=== PATIENT | male | born 1935 | race Caucasian/White ===

== ENCOUNTER 2017-04-03 01:17 | Day surgery (SDC) | payer MEDICARE ==
[~2017-04-03 01:17] MED LIST: ALLO300 PO; ASPI325EC PO; ASPI81CH PO; Amlodipine Besyl5 MG PO; BACPOLTO30 TOP; LISHYD2025 PO; METO25 PO
== END 2017-04-03 14:35 | disposition home or self-care (01) ==
LOC: ATC 01:17
DX: N40.1 Benign prostatic hyperplasia with lower urinary tract symptoms (principal); I12.9 Hypertensive chronic kidney disease with stage 1 through stage 4 chronic kidney disease, or unspecified chronic kidney disease; N18.9 Chronic kidney disease, unspecified; I48.0 Paroxysmal atrial fibrillation; R33.9 Retention of urine, unspecified
CPT/HCPCS: 51702

== ENCOUNTER 2017-04-23 00:43 | Day surgery (SDC) | payer MEDICARE | END 2017-04-23 14:37 | disposition home or self-care (01) | LOC: ATC 00:43 | DX: N40.1 Benign prostatic hyperplasia with lower urinary tract symptoms (principal); R33.9 Retention of urine, unspecified; I48.91 Unspecified atrial fibrillation; I12.9 Hypertensive chronic kidney disease with stage 1 through stage 4 chronic kidney disease, or unspecified chronic kidney disease; N18.9 Chronic kidney disease, unspecified; R73.9 Hyperglycemia, unspecified | CPT/HCPCS: 99211 ==

== ENCOUNTER 2018-02-09 17:52 | Inpatient (IN) | payer MEDICARE ==
[~2018-02-09] VITALS: Ht 185.4 cm; Wt 85.6 kg
[2018-02-09 19:22] LABS: BASOPHILS ABSOLUTE AUTO 0.07 K/mm3 (0.00-0.23); BASOPHILS PERCENT AUTO 1 % (0-2); EOSINOPHILS ABSOLUTE AUTO 0.25 K/mm3 (0.00-0.68); EOSINOPHILS PERCENT AUTO 2 % (0-6); Hematocrit 48.7 % (37.0-53.0); Hemoglobin 16.2 g/dL (13.5-17.5); IMMATURE GRAN ABSOLUTE AUTO 0.09 K/mm3 (0.00-0.10); IMMATURE GRAN PERCENT AUTO 1 % (0-1); LYMPHOCYTES ABSOLUTE AUTO 1.44 K/mm3 (0.84-5.20); LYMPHOCYTES PERCENT AUTO 11 % (21-46); MONOCYTES ABSOLUTE AUTO 0.81 K/mm3 (0.16-1.47); MONOCYTES PERCENT AUTO 6 % (4-13); Mean Corpuscular HGB 32.3 pg (26.0-34.0); Mean Corpuscular HGB Conc 33.3 g/dL (31.5-36.5); Mean Corpuscular Volume 97 fL (80-100); Mean Platelet Volume 12.2 fL (9.1-12.4); NEUTROPHILS PERCENT AUTO 80 % (41-73); Platelet Count 158 K/mm3 (150-400); RDW Coefficient Variation 13.9 % (11.7-14.2); RDW Standard Deviation 50.4 fL (35.1-46.3); Red Blood Cell Count 5.02 M/mm3 (4.30-5.90); White Blood Cell Count 13.06 K/mm3 (4.00-11.30)
[2018-02-09 19:29] LABS: Albumin, Blood 3.7 g/dL (3.4-5.0); Albumin/Globulin Ratio 0.9 (0.8-1.8); Bun/Creatinine Ratio 27.2 (12.0-20.0); Calcium, Blood 9.8 mg/dL (8.5-10.1); Creatinine, Blood 1.36 mg/dL (0.60-1.20); Globulin, Blood 4.1 g/dL (2.2-4.0); Potassium, Blood 3.4 mmol/L (3.5-5.5); Total Protein, Blood 7.8 g/dL (6.4-8.2)
[2018-02-09 21:38] LABS: Source, Urine Catheter
[2018-02-09 21:41] LABS: Bilirubin, Urine Neg (Neg); Blood, Urine 3+ (Neg); Glucose Qualitative, Urine Neg (Neg); Ketones, Urine Neg (Neg); Leukocyte Esterase, Urine 1+ (Neg); Nitrite, Urine Neg (Neg); Protein, Urine 4+ (Neg); Urobilinogen, Urine NORM (Normal); pH, Urine 6.5 (5.0-8.0)
[2018-02-09 21:44] LABS: Color, Urine Yellow (P-Yellow)
[2018-02-09 21:47] LABS: Appearance, Urine Hazy (Clear); Bacteria Many /hpf; Red Blood Cells, Urine 0-2 /hpf (0-2); Squamous Epithelial Cells Not Seen /hpf (Few); White Blood Cells, Urine 25-50 /hpf (0-5)
[2018-02-09] MEDS ORDERED: ALLO300 PO (23:11)
[2018-02-09] MEDS ORDERED: FURO20 PO (23:12)
[2018-02-09] MEDS ORDERED: LISI20 PO (23:12)
[2018-02-10 01:31] LABS: Source, Urine Clean Catch
[2018-02-10 01:34] LABS: Bilirubin, Urine Neg (Neg); Blood, Urine 3+ (Neg); Glucose Qualitative, Urine Neg (Neg); Ketones, Urine Neg (Neg); Leukocyte Esterase, Urine 1+ (Neg); Nitrite, Urine Neg (Neg); Protein, Urine 4+ (Neg); Urobilinogen, Urine NORM (Normal)
[2018-02-10 01:37] LABS: Appearance, Urine Hazy (Clear); Color, Urine Yellow (P-Yellow)
[2018-02-10 01:53] LABS: Bacteria Many /hpf; Red Blood Cells, Urine Rare /hpf (0-2); Squamous Epithelial Cells Not Seen /hpf (Few)
[2018-02-10 03:09] LABS: Hematocrit 48.7 % (37.0-53.0); Hemoglobin 16.1 g/dL (13.5-17.5); Mean Corpuscular HGB 32.3 pg (26.0-34.0); Mean Corpuscular HGB Conc 33.1 g/dL (31.5-36.5); Mean Corpuscular Volume 98 fL (80-100); Platelet Count 141 K/mm3 (150-400); RDW Coefficient Variation 14.1 % (11.7-14.2); RDW Standard Deviation 50.9 fL (35.1-46.3); Red Blood Cell Count 4.98 M/mm3 (4.30-5.90); White Blood Cell Count 12.63 K/mm3 (4.00-11.30)
[2018-02-10 03:22] LABS: Mean Platelet Volume 13.6 fL (9.1-12.4)
[2018-02-10 03:25] LABS: Alanine Aminotransfer (ALT/SGP 28 U/L (12-78); Albumin, Blood 3.1 g/dL (3.4-5.0); Albumin/Globulin Ratio 0.8 (0.8-1.8); Alk Phos 96 U/L (50-136); Anion Gap 9 mmol/L (6-16); Aspartate Aminotrans (AST/SGOT 32 U/L (12-37); Bilirubin, Total 1.8 mg/dL (0.1-1.0); Blood Urea Nitrogen 30 mg/dL (8-24); CO2, Blood 25 mmol/L (21-32); Calcium, Blood 8.5 mg/dL (8.5-10.1); Chloride, Blood 113 mmol/L (98-108); Creatinine, Blood 1.11 mg/dL (0.60-1.20); Globulin, Blood 4.1 g/dL (2.2-4.0); Glomerular Filtration Rate >60 (60-); Glucose, Blood 164 mg/dL (70-99); Potassium, Blood 4.1 mmol/L (3.5-5.5); Sodium, Blood 147 mmol/L (136-145); Total Protein, Blood 7.2 g/dL (6.4-8.2); Troponin I 0.048 ng/mL (0.000-0.040)
[2018-02-10 11:40] LABS: Troponin I 0.044 ng/mL (0.000-0.040)
[2018-02-11 05:16] LABS: BASOPHILS ABSOLUTE AUTO 0.04 K/mm3 (0.00-0.23); BASOPHILS PERCENT AUTO 0 % (0-2); EOSINOPHILS ABSOLUTE AUTO 0.02 K/mm3 (0.00-0.68); EOSINOPHILS PERCENT AUTO 0 % (0-6); Hematocrit 49.9 % (37.0-53.0); Hemoglobin 16.1 g/dL (13.5-17.5); IMMATURE GRAN ABSOLUTE AUTO 0.02 K/mm3 (0.00-0.10); IMMATURE GRAN PERCENT AUTO 0 % (0-1); LYMPHOCYTES ABSOLUTE AUTO 0.75 K/mm3 (0.84-5.20); LYMPHOCYTES PERCENT AUTO 8 % (21-46); MONOCYTES ABSOLUTE AUTO 1.12 K/mm3 (0.16-1.47); MONOCYTES PERCENT AUTO 12 % (4-13); Mean Corpuscular HGB 31.9 pg (26.0-34.0); Mean Corpuscular HGB Conc 32.3 g/dL (31.5-36.5); Mean Corpuscular Volume 99 fL (80-100); Mean Platelet Volume 12.3 fL (9.1-12.4); NEUTROPHILS ABSOLUTE AUTO 7.67 K/mm3 (1.96-9.15); NEUTROPHILS PERCENT AUTO 80 % (41-73); Platelet Count 123 K/mm3 (150-400); RDW Coefficient Variation 14.5 % (11.7-14.2); RDW Standard Deviation 52.4 fL (35.1-46.3); Red Blood Cell Count 5.05 M/mm3 (4.30-5.90); White Blood Cell Count 9.62 K/mm3 (4.00-11.30)
[2018-02-11 05:45] LABS: Albumin, Blood 2.6 g/dL (3.4-5.0); Anion Gap 9 mmol/L (6-16); Blood Urea Nitrogen 28 mg/dL (8-24); Bun/Creatinine Ratio 24.6 (12.0-20.0); CO2, Blood 26 mmol/L (21-32); Calcium, Blood 8.6 mg/dL (8.5-10.1); Chloride, Blood 111 mmol/L (98-108); Creatinine, Blood 1.14 mg/dL (0.60-1.20); Glomerular Filtration Rate >60 (60-); Glucose, Blood 119 mg/dL (70-99); Phosphorus, Blood 2.5 mg/dL (2.5-4.9); Potassium, Blood 3.6 mmol/L (3.5-5.5); Sodium, Blood 146 mmol/L (136-145)
[2018-02-12 04:47] LABS: BASOPHILS ABSOLUTE AUTO 0.03 K/mm3 (0.00-0.23); BASOPHILS PERCENT AUTO 0 % (0-2); EOSINOPHILS PERCENT AUTO 3 % (0-6); Hematocrit 45.3 % (37.0-53.0); Hemoglobin 14.4 g/dL (13.5-17.5); IMMATURE GRAN ABSOLUTE AUTO 0.02 K/mm3 (0.00-0.10); IMMATURE GRAN PERCENT AUTO 0 % (0-1); LYMPHOCYTES ABSOLUTE AUTO 0.91 K/mm3 (0.84-5.20); LYMPHOCYTES PERCENT AUTO 11 % (21-46); MONOCYTES ABSOLUTE AUTO 1.08 K/mm3 (0.16-1.47); MONOCYTES PERCENT AUTO 13 % (4-13); Mean Corpuscular HGB 31.7 pg (26.0-34.0); Mean Corpuscular HGB Conc 31.8 g/dL (31.5-36.5); Mean Corpuscular Volume 100 fL (80-100); Mean Platelet Volume 12.3 fL (9.1-12.4); NEUTROPHILS ABSOLUTE AUTO 5.91 K/mm3 (1.96-9.15); NEUTROPHILS PERCENT AUTO 72 % (41-73); Platelet Count 103 K/mm3 (150-400); RDW Coefficient Variation 14.1 % (11.7-14.2); RDW Standard Deviation 52.3 fL (35.1-46.3); Red Blood Cell Count 4.54 M/mm3 (4.30-5.90); White Blood Cell Count 8.15 K/mm3 (4.00-11.30)
[2018-02-12 05:04] LABS: Anion Gap 6 mmol/L (6-16); Blood Urea Nitrogen 24 mg/dL (8-24); Bun/Creatinine Ratio 20.5 (12.0-20.0); CO2, Blood 27 mmol/L (21-32); Chloride, Blood 111 mmol/L (98-108); Creatinine, Blood 1.17 mg/dL (0.60-1.20); Glomerular Filtration Rate >60 (60-); Glucose, Blood 106 mg/dL (70-99); Phosphorus, Blood 1.7 mg/dL (2.5-4.9); Potassium, Blood 3.4 mmol/L (3.5-5.5); Sodium, Blood 144 mmol/L (136-145)
[2018-02-13 05:08] LABS: BASOPHILS ABSOLUTE AUTO 0.03 K/mm3 (0.00-0.23); BASOPHILS PERCENT AUTO 0 % (0-2); EOSINOPHILS ABSOLUTE AUTO 0.35 K/mm3 (0.00-0.68); EOSINOPHILS PERCENT AUTO 4 % (0-6); Hematocrit 45.6 % (37.0-53.0); Hemoglobin 14.6 g/dL (13.5-17.5); IMMATURE GRAN ABSOLUTE AUTO 0.06 K/mm3 (0.00-0.10); IMMATURE GRAN PERCENT AUTO 1 % (0-1); LYMPHOCYTES ABSOLUTE AUTO 0.84 K/mm3 (0.84-5.20); LYMPHOCYTES PERCENT AUTO 10 % (21-46); MONOCYTES ABSOLUTE AUTO 1.04 K/mm3 (0.16-1.47); MONOCYTES PERCENT AUTO 13 % (4-13); Mean Corpuscular Volume 100 fL (80-100); Mean Platelet Volume 12.7 fL (9.1-12.4); NEUTROPHILS ABSOLUTE AUTO 5.98 K/mm3 (1.96-9.15); NEUTROPHILS PERCENT AUTO 72 % (41-73); Platelet Count 105 K/mm3 (150-400); RDW Coefficient Variation 13.7 % (11.7-14.2); RDW Standard Deviation 51.7 fL (35.1-46.3); Red Blood Cell Count 4.56 M/mm3 (4.30-5.90)
[2018-02-13 05:26] LABS: Albumin, Blood 2.1 g/dL (3.4-5.0); Anion Gap 8 mmol/L (6-16); Blood Urea Nitrogen 22 mg/dL (8-24); Bun/Creatinine Ratio 18.6 (12.0-20.0); CO2, Blood 26 mmol/L (21-32); Chloride, Blood 108 mmol/L (98-108); Creatinine, Blood 1.18 mg/dL (0.60-1.20); Glomerular Filtration Rate >60 (60-); Glucose, Blood 102 mg/dL (70-99); Phosphorus, Blood 1.7 mg/dL (2.5-4.9); Potassium, Blood 3.7 mmol/L (3.5-5.5); Sodium, Blood 142 mmol/L (136-145)
[2018-02-13 08:16] LABS: HBSAG SCREEN Negative (Negative); HEP B CORE AB, TOT Negative (Negative); HEP C VIRUS AB <0.1 (0.0-0.9)
[2018-02-14 05:20] LABS: BASOPHILS ABSOLUTE AUTO 0.04 K/mm3 (0.00-0.23); BASOPHILS PERCENT AUTO 1 % (0-2); EOSINOPHILS ABSOLUTE AUTO 0.39 K/mm3 (0.00-0.68); EOSINOPHILS PERCENT AUTO 5 % (0-6); Hematocrit 45.3 % (37.0-53.0); Hemoglobin 14.7 g/dL (13.5-17.5); IMMATURE GRAN ABSOLUTE AUTO 0.06 K/mm3 (0.00-0.10); IMMATURE GRAN PERCENT AUTO 1 % (0-1); LYMPHOCYTES ABSOLUTE AUTO 0.77 K/mm3 (0.84-5.20); LYMPHOCYTES PERCENT AUTO 9 % (21-46); MONOCYTES ABSOLUTE AUTO 1.02 K/mm3 (0.16-1.47); MONOCYTES PERCENT AUTO 12 % (4-13); Mean Corpuscular HGB Conc 32.5 g/dL (31.5-36.5); Mean Corpuscular Volume 99 fL (80-100); Mean Platelet Volume 12.2 fL (9.1-12.4); NEUTROPHILS ABSOLUTE AUTO 6.01 K/mm3 (1.96-9.15); NEUTROPHILS PERCENT AUTO 73 % (41-73); Platelet Count 104 K/mm3 (150-400); RDW Coefficient Variation 13.7 % (11.7-14.2); White Blood Cell Count 8.29 K/mm3 (4.00-11.30)
[2018-02-14 05:41] LABS: Albumin, Blood 2.1 g/dL (3.4-5.0); Anion Gap 8 mmol/L (6-16); Blood Urea Nitrogen 19 mg/dL (8-24); Bun/Creatinine Ratio 18.1 (12.0-20.0); CO2, Blood 27 mmol/L (21-32); Calcium, Blood 8.2 mg/dL (8.5-10.1); Chloride, Blood 107 mmol/L (98-108); Creatinine, Blood 1.05 mg/dL (0.60-1.20); Glomerular Filtration Rate >60 (60-); Glucose, Blood 99 mg/dL (70-99); Phosphorus, Blood 2.4 mg/dL (2.5-4.9); Potassium, Blood 3.6 mmol/L (3.5-5.5); Sodium, Blood 142 mmol/L (136-145)
[2018-02-15] MEDS ORDERED: SACC250C PO (13:19)
[2018-02-15] MEDS ORDERED: VANC125 PO (13:20)
[2018-02-15] MEDS ORDERED: Omeprazole20 M1 PO (13:20)
[2018-02-15] MEDS ORDERED: ONDA4ODT MM (13:24)
== END 2018-02-15 15:49 | disposition home health service (06) | DRG 871 ==
LOC: ER 17:52 → ICUW 17:53 → MEDS 17:53 → ER 17:53 → MEDS 02-10 00:05
PROVIDERS: Family Medicine; Internal Medicine; Internal Medicine Gastroenterology; Physician Assistant
DX: A41.9 Sepsis, unspecified organism (principal); J96.01 Acute respiratory failure with hypoxia; J18.9 Pneumonia, unspecified organism; N17.9 Acute kidney failure, unspecified; E87.0 Hyperosmolality and hypernatremia; N13.8 Other obstructive and reflux uropathy; A04.72 Enterocolitis due to Clostridium difficile, not specified as recurrent; N39.0 Urinary tract infection, site not specified; R65.20 Severe sepsis without septic shock; I48.91 Unspecified atrial fibrillation; I10 Essential (primary) hypertension; E87.6 Hypokalemia; E86.0 Dehydration; N40.1 Benign prostatic hyperplasia with lower urinary tract symptoms; E83.39 Other disorders of phosphorus metabolism; D69.6 Thrombocytopenia, unspecified; K21.9 Gastro-esophageal reflux disease without esophagitis; B96.20 Unspecified Escherichia coli [E. coli] as the cause of diseases classified elsewhere; Z16.12 Extended spectrum beta lactamase (ESBL) resistance; K57.90 Diverticulosis of intestine, part unspecified, without perforation or abscess without bleeding; K46.9 Unspecified abdominal hernia without obstruction or gangrene; Z87.891 Personal history of nicotine dependence
CPT/HCPCS: 36415; 71045; 74176; 80053; 80069; 81001; 82105; 82550; 83605; 83690; 84145; 84484; 85025; 85027; 86317; 86704; 86708; 86803; 87015; 87045; 87046; 87077; 87086; 87186; 87205; 87340; 87493; 87899; 93005; 93010; 93306; 96361; 96365; 96366; 96367; 96372; 96374; 96375; 96376; 97116; 97162; 97165; 97530; 97535; 99285-25; C9113; G0378; G8978; G8979; G8987; G8988; J0696; J1170; J1650; J2185; J2405; J2765; J3010; J3480; J7030; J7042; J7050

== ENCOUNTER → 2019-09-25 | Outpatient (CLI) | payer MEDICARE ==
[~2019-09-25] MED LIST changes: +FURO20 PO; +LISI20 PO; +ONDA4ODT MM; +Omeprazole20 M1 PO; +SACC250C PO; +VANC125 PO
== END | disposition home or self-care (01) ==
LOC: PLD 08:47 → LAB SHORT 08:47
DX: D04.39 Carcinoma in situ of skin of other parts of face (principal)
CPT/HCPCS: 88305

== ENCOUNTER 2020-11-30 11:42 | Emergency (ER) | payer MEDICARE ==
[~2020-11-30] VITALS: Ht 182.9 cm; Wt 84.4 kg
[2020-11-30] MEDS ORDERED: FINA5 PO (12:05)
[2020-11-30] MEDS ORDERED: TAMSULOSIN HCL0.4 M1 PO (12:06)
[2020-11-30] MEDS ORDERED: FUROSEMIDE20 MG PO (12:06)
[2020-11-30] MEDS ORDERED: METOPROLOL TART25 MG PO (12:06)
[2020-11-30] MEDS ORDERED: LISINOPRIL2.5 MG PO (12:06)
[2020-11-30] MEDS ORDERED: XARELTO20 MG PO (12:07)
[2020-11-30 12:18] LABS: BASOPHILS ABSOLUTE AUTO 0.04 K/mm3 (0.00-0.23); BASOPHILS PERCENT AUTO 0 % (0-2); EOSINOPHILS ABSOLUTE AUTO 0.01 K/mm3 (0.00-0.68); EOSINOPHILS PERCENT AUTO 0 % (0-6); Hematocrit 46.7 % (37.0-53.0); Hemoglobin 15.4 g/dL (13.5-17.5); IMMATURE GRAN ABSOLUTE AUTO 0.03 K/mm3 (0.00-0.10); IMMATURE GRAN PERCENT AUTO 0 % (0-1); LYMPHOCYTES ABSOLUTE AUTO 0.48 K/mm3 (0.84-5.20); LYMPHOCYTES PERCENT AUTO 5 % (21-46); MONOCYTES ABSOLUTE AUTO 0.35 K/mm3 (0.16-1.47); MONOCYTES PERCENT AUTO 4 % (4-13); Mean Corpuscular HGB 31.7 pg (26.0-34.0); Mean Corpuscular Volume 96 fL (80-100); Mean Platelet Volume 12.1 fL (9.1-12.4); NEUTROPHILS ABSOLUTE AUTO 8.19 K/mm3 (1.96-9.15); NEUTROPHILS PERCENT AUTO 90 % (41-73); Platelet Count 140 K/mm3 (150-400); RDW Coefficient Variation 14.3 % (11.7-14.2); RDW Standard Deviation 50.3 fL (35.1-46.3); Red Blood Cell Count 4.86 M/mm3 (4.30-5.90)
[2020-11-30 12:33] LABS: Troponin I <0.015 ng/mL (0.000-0.040)
[2020-11-30 12:54] LABS: Alanine Aminotransfer (ALT/SGP 30 U/L (12-78); Albumin, Blood 3.2 g/dL (3.4-5.0); Albumin/Globulin Ratio 0.6 (0.8-1.8); Alk Phos 116 U/L (50-136); Anion Gap 5 mmol/L (6-16); Aspartate Aminotrans (AST/SGOT 53 U/L (12-37); Bilirubin, Total 2.5 mg/dL (0.1-1.0); Blood Urea Nitrogen 33 mg/dL (8-24); Bun/Creatinine Ratio 29.2 (12.0-20.0); CO2, Blood 27 mmol/L (21-32); Calcium, Blood 9.5 mg/dL (8.5-10.1); Chloride, Blood 108 mmol/L (98-108); Creatinine, Blood 1.13 mg/dL (0.60-1.20); Glomerular Filtration Rate >60 (60-); Glucose, Blood 150 mg/dL (70-99); Potassium, Blood 5.4 mmol/L (3.5-5.5); Sodium, Blood 140 mmol/L (136-145); Total Protein, Blood 8.2 g/dL (6.4-8.2)
[2020-11-30] MEDS ORDERED: FURO20 PO (13:07)
== END 2020-11-30 14:30 | disposition home or self-care (01) ==
LOC: ER 11:42
PROVIDERS: Student in an Organized Health Care Education/Training Program
DX: J93.83 Other pneumothorax (principal); I10 Essential (primary) hypertension; I48.91 Unspecified atrial fibrillation; Z79.899 Other long term (current) drug therapy; Z79.01 Long term (current) use of anticoagulants; Z87.891 Personal history of nicotine dependence
CPT/HCPCS: 32551; 36415; 71045; 80053; 84484; 85025; 93005; 93010; 99285-25

== ENCOUNTER 2020-12-01 15:42 | Inpatient (IN) | payer MEDICARE ==
[~2020-12-01] VITALS: Ht 182.9 cm; Wt 80.3 kg
[~2020-12-01 15:42] MED LIST changes: +FINA5 PO; +FUROSEMIDE20 MG PO; +LISINOPRIL2.5 MG PO; +METOPROLOL TART25 MG PO; +TAMSULOSIN HCL0.4 M1 PO; +XARELTO20 MG PO
--- NOTE | 2020-12-02 02:03 | NUR ---
PT ADMITTED TO FLOOR, CHEST TUBE PLACED ON SUCTION. 2L O2 NC, O2SAT 92%. AT ABOUT 0130 O2 SAT DROPS TO 82% SUSTAINED ON 2 L 02 NC, PT IS TRIPODING, ACCESSORY MUSCLE USE, NO RIGHT LUNG SOUNDS. INCREASED O2 TO 10L TO MAINTAIN O2 SAT AT 92%. NOTIFIED, ORDERED 1VIEW CXRAY. PRESENTING WITH RIGHT PNEUMOTHORAX AGAIN. MOTOR PATROL OPERATOR PULMINOLOGY IN ROUTE.
[2020-12-02 04:15] LABS: BASOPHILS ABSOLUTE AUTO 0.02 K/mm3 (0.00-0.23); BASOPHILS PERCENT AUTO 0 % (0-2); EOSINOPHILS ABSOLUTE AUTO 0.03 K/mm3 (0.00-0.68); EOSINOPHILS PERCENT AUTO 0 % (0-6); Hematocrit 46.7 % (37.0-53.0); Hemoglobin 15.2 g/dL (13.5-17.5); IMMATURE GRAN ABSOLUTE AUTO 0.05 K/mm3 (0.00-0.10); IMMATURE GRAN PERCENT AUTO 1 % (0-1); LYMPHOCYTES ABSOLUTE AUTO 0.52 K/mm3 (0.84-5.20); LYMPHOCYTES PERCENT AUTO 5 % (21-46); MONOCYTES ABSOLUTE AUTO 0.57 K/mm3 (0.16-1.47); MONOCYTES PERCENT AUTO 6 % (4-13); Mean Corpuscular HGB 31.3 pg (26.0-34.0); Mean Corpuscular HGB Conc 32.5 g/dL (31.5-36.5); Mean Corpuscular Volume 96 fL (80-100); Mean Platelet Volume 12.3 fL (9.1-12.4); NEUTROPHILS ABSOLUTE AUTO 8.82 K/mm3 (1.96-9.15); NEUTROPHILS PERCENT AUTO 88 % (41-73); Platelet Count 126 K/mm3 (150-400); RDW Coefficient Variation 14.4 % (11.7-14.2); RDW Standard Deviation 50.7 fL (35.1-46.3); Red Blood Cell Count 4.85 M/mm3 (4.30-5.90); White Blood Cell Count 10.01 K/mm3 (4.00-11.30)
[2020-12-02 04:49] LABS: Anion Gap 6 mmol/L (6-16); Blood Urea Nitrogen 35 mg/dL (8-24); Bun/Creatinine Ratio 31.2 (12.0-20.0); CO2, Blood 27 mmol/L (21-32); Calcium, Blood 9.9 mg/dL (8.5-10.1); Chloride, Blood 109 mmol/L (98-108); Creatinine, Blood 1.12 mg/dL (0.60-1.20); Glomerular Filtration Rate >60 (60-); Glucose, Blood 134 mg/dL (70-99); Potassium, Blood 3.8 mmol/L (3.5-5.5); Sodium, Blood 142 mmol/L (136-145)
--- NOTE | 2020-12-02 07:30 | NUR ---
ASSUMED CARE: PT RESTING IN BED ON 2L OXYMIZER. CHEST TUBE TO WALL SUCTION, BUBBLING CONFIRMED. AFIB IN 70S ON TELE AT THIS TIME. NO ACUTE NEEDS OR CONCERNS.
[2020-12-02 12:20] LABS: Automated BF RBC Count 0.009 M/mm3 (0-0); Automated BF WBC Count 4.734 K/mm3 (0-999); Body Fluid WBC Count 4734 /mm3 (0-999); RBC Count, Body Fluid 9000 /mm3 (0-0)
[2020-12-02 12:27] LABS: Glucose, Body Fluid 90 mg/dL; Protein, Body Fluid 2.9 g/dL
[2020-12-02 12:56] LABS: Appearance, Body Fluid Clear (Clear); Color, Body Fluid Amber (None-Yellow); Total Cell Count, Body Fluid 100
--- NOTE | 2020-12-02 18:54 | NUR ---
0710-Rec'd pt this morning, aox4, c/o mild pain to the right rib area but relieves with repositioning and with pilow placed to that area. Right lateral chest tube connected to suction, bubbling/fluctuating and oriental medicine practitioner says it is appropriate. Pt was placed in the chair at 1515 and returned at 1800. Pt was afebrile this shift, other vital signs stable. Ate all meals well. Lungs are diminished in all lobes, remains on 2LNC and Sp02 of 89-94%. Straight cath pt at 1150 and 1820, see I&O's for details. Endorsed pt care to softball winder RN.
--- NOTE | 2020-12-03 05:31 | NUR ---
SHIFT SUMMARY PATIENT FOUND TO BE A PLESANT MAN WHO IS A&OX4 WITH SOME GENERALIZED WEAKNESS. UP WITH SBA IN ROOM. AFIB ON THE MONIITOR INTO THE LOW 50'S HIGH 40'S WHEN ASLEEP AND 60'S -70'S WHEN AWAKE. VSS. ON 2L OXYMIZER. CHEST TUBE TO WALL SUCTION WITH SEROSANG OUTPUT FUNCTIONING WELL. NO CP OR SOB NOTED UPON ASSESSMENT.TOLERATING DIET,BUT POOR APPETITE SO ENCOURAGING ORAL INTAKE. Q6H STRAIGHT CATH PERFORMED PER PATIENT REQUEST WITHOUT ISSUE. NO ACUTE CONCERNS AT THIS TIME. WILL CONTINUE PLAN OF CARE UNTIL REPORT GIVEN TO CIPRIANO VEGA.
--- NOTE | 2020-12-03 19:13 | NUR ---
0710-Rec'd pt this morning, no significant event overnight per night order selector RN. VSS, afebrile, was placed in the chair at 1100. Right chest tube was clamped by Dr. Salcedo, pt denies any chest pain and SOB, pt did well sitting in the chair all day, he walked around the room per his request. Currently pt is back in bed, no significant event this shift, endorse care to night order selector RN.
[2020-12-04 03:53] LABS: BASOPHILS ABSOLUTE AUTO 0.04 K/mm3 (0.00-0.23); BASOPHILS PERCENT AUTO 1 % (0-2); EOSINOPHILS ABSOLUTE AUTO 0.32 K/mm3 (0.00-0.68); EOSINOPHILS PERCENT AUTO 4 % (0-6); Hematocrit 42.7 % (37.0-53.0); Hemoglobin 14.1 g/dL (13.5-17.5); IMMATURE GRAN ABSOLUTE AUTO 0.04 K/mm3 (0.00-0.10); IMMATURE GRAN PERCENT AUTO 1 % (0-1); LYMPHOCYTES ABSOLUTE AUTO 0.78 K/mm3 (0.84-5.20); LYMPHOCYTES PERCENT AUTO 10 % (21-46); MONOCYTES ABSOLUTE AUTO 0.93 K/mm3 (0.16-1.47); MONOCYTES PERCENT AUTO 12 % (4-13); Mean Corpuscular HGB 31.8 pg (26.0-34.0); Mean Corpuscular Volume 96 fL (80-100); NEUTROPHILS ABSOLUTE AUTO 5.77 K/mm3 (1.96-9.15); NEUTROPHILS PERCENT AUTO 73 % (41-73); Platelet Count 137 K/mm3 (150-400); RDW Standard Deviation 49.9 fL (35.1-46.3); Red Blood Cell Count 4.43 M/mm3 (4.30-5.90); White Blood Cell Count 7.88 K/mm3 (4.00-11.30)
[2020-12-04 04:13] LABS: Bun/Creatinine Ratio 31.1 (12.0-20.0); Calcium, Blood 8.9 mg/dL (8.5-10.1); Creatinine, Blood 1.19 mg/dL (0.60-1.20); Potassium, Blood 3.4 mmol/L (3.5-5.5)
--- NOTE | 2020-12-04 06:26 | NUR ---
SHIFT SUMMARY PATIENT FOUND TO BE A PLESANT MAN WHO IS A&OX4 WITH SOME GENERALIZED WEAKNESS. UP WITH SBA IN ROOM . AFIB ON THE MONITOR INTO THE LOW 50'S WHEN ASLEEP. VSS. ON 2L OXYMIZER. CHEST TUBE CLAMPED TO WATER SEAL. NO CP OR SOB NOTED UPON ASSESMENT. TOLERATING DIET BUT POOR APPETITE SO ENCOURAGING ORAL INTAKE. FORGOING Q6H STRAIGHT CATH PATIENT WOULD RATHER GO IN URINAL SO DOING THIS WITHOUT ISSUE THROUGHOUT SHIFT. NO ACUTE CONCERNS AT THIS TIME. WILL CONTINUE PLAN OF CARE UNTIL REPORT GIVEN TO CIPRIANO VEGA.
--- NOTE | 2020-12-04 18:22 | NUR ---
0710-Rec'd pt, aox4, denies any chest pain, SOB or discomfort, VSS, Sp0 of 93% on RA, lungs clear to diminished. Right side chest tube connected back to wall suction at [address] Cartagena's order, drainage color is serous. Pt c/o of persistent sharp pain with score of 4/10 while chest tube is to suction, will make ICU team/MD aware, will endorse pt care to retail shift manager RN.
--- NOTE | 2020-12-05 06:23 | NUR ---
SHIFT SUMMARY PT ALERT AND ORIENTED X4. PLESANT AND COOPERATIVE TO CARE. WALKED FROM CHAIR TO BED TO SLEEP. SATS OVER 90% ON RA. BP HYPERTENSIVE. CHEST TUBE SECURE AND DRESSING C/D/I. TELE READS A-FIB 60'S. X1 SBA TO BEDSIDE URINAL. PT ASLEEP MOST OF NIGHT. WILL CONTINUE OT MONITOR UNTIL REPORT GIVEN TO DAYSHIFT RN
--- NOTE | 2020-12-05 18:45 | NUR ---
SHIFT SUMMARY; ASSUMED CARE AT 0700. A/A/OX4. CHEST TUBE DRAINING TO CLOSED DRAINAGE SYSTEM. VSS, SATS 95%. CHEST TUBE REMOVED BY DR. CALDWELL. 4X4 GAUZE DRESSING AND TEGADERM PLACED PER DR. CALDWELL. DISCHARGED TO DAUGHTER. VERBAL AND WRITTEN INSTRUCTIONS GIVEN.
== END 2020-12-05 18:50 | disposition home or self-care (01) | DRG 191 ==
LOC: ER 15:42 → PCU 18:34
PROVIDERS: Internal Medicine Critical Care Medicine; Student in an Organized Health Care Education/Training Program; ADMIT Internal Medicine
PROC: 3E02340 Introduction of Influenza Vaccine into Muscle, Percutaneous Approach (ICD-10-PCS; 2020-12-01)
PROC: 0W9930Z Drainage of Right Pleural Cavity with Drainage Device, Percutaneous Approach (ICD-10-PCS; principal; 2020-12-02)
DX: J43.9 Emphysema, unspecified (principal); I48.20 Chronic atrial fibrillation, unspecified; J93.12 Secondary spontaneous pneumothorax; E80.6 Other disorders of bilirubin metabolism; N18.30 Chronic kidney disease, stage 3 unspecified; N40.0 Benign prostatic hyperplasia without lower urinary tract symptoms; I48.0 Paroxysmal atrial fibrillation; E79.0 Hyperuricemia without signs of inflammatory arthritis and tophaceous disease; I10 Essential (primary) hypertension; Z98.890 Other specified postprocedural states; Z87.891 Personal history of nicotine dependence; Z79.899 Other long term (current) drug therapy; Z20.822 Contact with and (suspected) exposure to COVID-19; Z23 Encounter for immunization
CPT/HCPCS: 32551; 36415; 71045; 71046; 71260; 80048; 80053; 82945; 84157; 84484; 85025; 89051; 93005; 93010; 94762; 99284-25; 99285-25; A9270; J0690; J7050; Q9967

== ENCOUNTER → 2021-06-21 | Outpatient (CLI) | payer MEDICARE | END | disposition home or self-care (01) | LOC: PLD 15:02 → LAB SHORT 15:02 | DX: D04.4 Carcinoma in situ of skin of scalp and neck (principal); D48.5 Neoplasm of uncertain behavior of skin | CPT/HCPCS: 88305 ==

== ENCOUNTER 2021-08-16 09:45 | Inpatient (IN) | payer MEDICARE ==
[~2021-08-16] VITALS: Ht 182.9 cm; Wt 74.5 kg
[~2021-08-16 09:45] MED LIST changes: -LISINOPRIL2.5 MG PO
[2021-08-16 10:21] LABS: BASOPHILS ABSOLUTE AUTO 0.03 K/mm3 (0.00-0.23); BASOPHILS PERCENT AUTO 0 % (0-2); EOSINOPHILS PERCENT AUTO 0 % (0-6); Hematocrit 46.5 % (37.0-53.0); Hemoglobin 15.2 g/dL (13.5-17.5); IMMATURE GRAN ABSOLUTE AUTO 0.05 K/mm3 (0.00-0.10); IMMATURE GRAN PERCENT AUTO 0 % (0-1); LYMPHOCYTES ABSOLUTE AUTO 0.35 K/mm3 (0.84-5.20); LYMPHOCYTES PERCENT AUTO 3 % (21-46); MONOCYTES ABSOLUTE AUTO 0.71 K/mm3 (0.16-1.47); MONOCYTES PERCENT AUTO 6 % (4-13); Mean Corpuscular HGB 31.7 pg (26.0-34.0); Mean Corpuscular HGB Conc 32.7 g/dL (31.5-36.5); Mean Corpuscular Volume 97 fL (80-100); NEUTROPHILS ABSOLUTE AUTO 11.86 K/mm3 (1.96-9.15); NEUTROPHILS PERCENT AUTO 91 % (41-73); Platelet Count 183 K/mm3 (150-400); RDW Coefficient Variation 13.8 % (11.7-14.2); RDW Standard Deviation 49.5 fL (35.1-46.3)
[2021-08-16 10:28] LABS: Mean Platelet Volume 13.6 fL (9.1-12.4)
[2021-08-16 10:42] LABS: Alanine Aminotransfer (ALT/SGP 23 U/L (12-78); Albumin, Blood 2.5 g/dL (3.4-5.0); Albumin/Globulin Ratio 0.6 (0.8-1.8); Alk Phos 124 U/L (50-136); Anion Gap 9 mmol/L (6-16); Aspartate Aminotrans (AST/SGOT 38 U/L (12-37); Bilirubin, Total 1.8 mg/dL (0.1-1.0); Blood Urea Nitrogen 34 mg/dL (8-24); Bun/Creatinine Ratio 30.4 (12.0-20.0); CO2, Blood 28 mmol/L (21-32); Calcium, Blood 9.1 mg/dL (8.5-10.1); Chloride, Blood 106 mmol/L (98-108); Creatinine, Blood 1.12 mg/dL (0.60-1.20); Ethanol (Alcohol), Blood, Med <3 mg/dL; Globulin, Blood 4.4 g/dL (2.2-4.0); Glomerular Filtration Rate 64 (60-); Glucose, Blood 172 mg/dL (70-99); Potassium, Blood 3.4 mmol/L (3.5-5.5); Sodium, Blood 143 mmol/L (136-145); Total Protein, Blood 6.9 g/dL (6.4-8.2)
--- NOTE | 2021-08-16 10:47 | NUR ---
Responding to Rapid Reponse. Pts. is in waiting room. Sat with her in waiting room establishing rapport, till staff brought her into the ED room. Stayed with spouse as staff took Pt. to get CatScans. Explored issues of hannah anfd belief. The spouse verbalized that Pt. and spouse have a long established hannah. Facilitated a life review with Spouse. Spouse displayed evidence of being at peace with the pts. condition regardless of outcome. Spouse has a background as a nurse. Prayed with the spouse. Spouse verbalized gratitude for the spiritual care visit, and the generous time committed to her.
[2021-08-16 10:48] LABS: International Normalized Ratio 1.1; Prothrombin Time Results 11.5 Sec (9.7-11.5)
[2021-08-16 11:37] LABS: Source, Urine Foley catheter
[2021-08-16 11:41] LABS: Appearance, Urine Clear (Clear); Bilirubin, Urine Neg (Neg); Blood, Urine 3+ (Neg); Color, Urine Yellow (P-Yellow); Glucose Qualitative, Urine Neg (Neg); Ketones, Urine Neg (Neg); Leukocyte Esterase, Urine Neg (Neg); Nitrite, Urine Neg (Neg); Protein, Urine 4+ (Neg); Urobilinogen, Urine NORM (Normal)
[2021-08-16 11:53] LABS: U Amphetamine Screen Not Detected; U Barbituate Screen Not Detected; U Benzodiazapine Screen Not Detected; U Buprenorphine Screen Not Detected; U Cannabinoids Screen Not Detected; U Cocaine Screen Not Detected; U Methadone Screen Not Detected; U Methamphetamine Screen Not Detected; U Opiates Screen Not Detected; U Oxycodone Screen Not Detected; U Phencyclidine Screen Not Detected; U Propoxyphene Screen Not Detected
[2021-08-16 11:56] LABS: Bacteria Many /hpf; Squamous Epithelial Cells Few /hpf (Few)
[2021-08-16] MEDS ORDERED: FURO20 PO (15:20)
[2021-08-16] MEDS ORDERED: XARELTO20 MG PO (15:21)
[2021-08-16] MEDS ORDERED: POTA10T PO (15:22)
[2021-08-16] MEDS ORDERED: MORPHINE CONCENTRATE (15:24)
--- NOTE | 2021-08-16 18:59 | NUR ---
ASSUMED CARE FROM ED NURSEHAYES.
[2021-08-17 05:09] LABS: BASOPHILS ABSOLUTE AUTO 0.02 K/mm3 (0.00-0.23); BASOPHILS PERCENT AUTO 0 % (0-2); EOSINOPHILS PERCENT AUTO 0 % (0-6); Hematocrit 48.7 % (37.0-53.0); Hemoglobin 15.8 g/dL (13.5-17.5); IMMATURE GRAN ABSOLUTE AUTO 0.04 K/mm3 (0.00-0.10); IMMATURE GRAN PERCENT AUTO 0 % (0-1); LYMPHOCYTES ABSOLUTE AUTO 0.54 K/mm3 (0.84-5.20); LYMPHOCYTES PERCENT AUTO 4 % (21-46); MONOCYTES PERCENT AUTO 6 % (4-13); Mean Corpuscular HGB 31.5 pg (26.0-34.0); Mean Corpuscular HGB Conc 32.4 g/dL (31.5-36.5); Mean Corpuscular Volume 97 fL (80-100); NEUTROPHILS ABSOLUTE AUTO 11.01 K/mm3 (1.96-9.15); NEUTROPHILS PERCENT AUTO 89 % (41-73); Platelet Count 188 K/mm3 (150-400); RDW Coefficient Variation 14.2 % (11.7-14.2); RDW Standard Deviation 50.4 fL (35.1-46.3); Red Blood Cell Count 5.01 M/mm3 (4.30-5.90); White Blood Cell Count 12.31 K/mm3 (4.00-11.30)
[2021-08-17 05:10] LABS: Mean Platelet Volume 13.2 fL (9.1-12.4)
[2021-08-17 05:27] LABS: Bun/Creatinine Ratio 32.4 (12.0-20.0); Calcium, Blood 9.5 mg/dL (8.5-10.1); Creatinine, Blood 0.93 mg/dL (0.60-1.20); Potassium, Blood 3.2 mmol/L (3.5-5.5)
--- NOTE | 2021-08-17 06:03 | NUR ---
PT ARRIVED ON FLOOR AT SHIFT CHANGE, AT BEDSIDE. PT IS WEAKER ON RIGHT WITH DROOP AND SLURRED SPEECH. BP AT 1999 WAS 203/126, CALLED WITH PRN HYDRALAZINE ORDERS. MORNING BP 185/97, ADDITIONAL HYDRALAZINE GIVEN AT 0620. PT IS AFIB WITH PVC NO CHEST PAIN.
--- NOTE | 2021-08-17 11:53 | NUR ---
Spiritual Care Visit. Pt. was not present in room when I arrived (he was getting MRI), but spouse is present. Spouse welcomes my visit, and we quickly re-establish rapport. Spouse verbalizes the progress in the Pts. health since admission from ED yesterday. Pt. returns to room with nurses transferring him to his room bed. Pt. is alert and is responsive to my introduction. Pt. displayed evidence of being tired, so this web press operator apprentice kept his visit short. The Pt. displayed evidence of being committed to his PT and OT. Pt. mostly listened, but responded occassionaly with short words a/o sentences. Prayed for Pt. Pt. and spouse verbalize gratitude for the spirritual care visit.
--- NOTE | 2021-08-17 17:23 | NUR ---
Patient has been improving in condition over the course of the day. Patient had MRI and appointment with speech therapist today. Mechanical soft diet established, thin liquids acceptable no straws. Awaiting further consult and establishment with physical therapy. Call light left within reach.
--- NOTE | 2021-08-18 05:05 | NUR ---
SHIFT SUMMARY PT HAD AN UNEVENTFUL NIGHT. SLEPT WELL. CONTINUES TO HAVE WEAKNESS ON R SIDE. PALMA CATHETER PATENT AND DRAINING. PT DOES HAVE SOME APHASIA BUT SEEMS TO BE IMPROVING ACCORDING TO HIS . REMAINED AT BEDSIDE THROUGHOUT THE NIGHT. NO COMPLAINTS OF PAIN. TELEMETRY AFIB W/ MANY PVC'S. REPORTS THAT THIS IS NORMAL FOR PT. PT DID HAVE ONE 4 BEAT RUN OF VTACH. TELEMETRY REPORTED THAT THIS HAD HAPPENED TWICE IN THE PREVIUOS SHIFT WELL. PT SLEEPING AT THE TIME THIS EVENING. CONTINUES TO HAVE HTN, WITHIN PERAMETERS FOR PERMISSIVE HTN. OTHERWISE NO ACUTE CHANGES. WILL CONTINUE TO MONITOR.
[2021-08-18 08:54] LABS: Bun/Creatinine Ratio 34.3 (12.0-20.0); Creatinine, Blood 1.02 mg/dL (0.60-1.20); Potassium, Blood 3.8 mmol/L (3.5-5.5)
--- NOTE | 2021-08-18 13:48 | NUR ---
CHANGE IN LOC PT'S AT BEDSIDE, CALLED DUE TO PT NOT RESPONDING TO HER. PT ABLE TO OPEN EYES TO TOUCH AND SOUND BUT NOT ABLE TO VERBALLY RESPOND HE HAD EARLIER. VITALS TAKEN WITH BP 140/99 MAP 112 HR 87 TEMP 97.1 AND O2 SAT 94%, MD NOTIFIED. DR GUERRERO STATES HE WILL CALL [facility] TO SEE IF THEY HAVE RECOMMENDATIONS. APPROX 10 MIN PASSED WHEN PT'S CALLED AGAIN AND PT WAS BACK AT HIS BASELINE FROM THIS MORNING.
--- NOTE | 2021-08-18 17:21 | NUR ---
DAY SHIFT SUMMARY 86 YR OLD MALE PT WITH ACUTE CVA, PALMA INTACT/PATENT AND DRAINING VIA GRAVITY. SCATTERED BRUISING THROUGHOUT. AT BEDSIDE THROUGHOUT SHIFT. PT DID HAVE BRIEF CHANGE IN LOC THIS SHIFT WHICH THEN RETURNED TO BASELINE FROM EARLIER (SEE PREVIOUS NOTE), AWARE. CALL LIGHT WITHIN REACH.
--- NOTE | 2021-08-19 04:33 | NUR ---
SHIFT SUMMARY BLOOD PRESSURE AND HEART RATE IMPROVED THIS EVENING. REMAINS IN AFIB WITH RATE IN THE 80'S. PALMA PATENT AND DRAINING. CONTINUES TO HAVE WEAKNESS ON R SIDE. WEAKNESS APPEARS WORSE ON R SIDE THIS EVENING THAN PREVIOUS EVENING. PT ALSO HAD AN EPISODE AGAIN WHERE HE BECOME MOSTLY UNRESPONSIVE. WOULD OPEN EYES FOR BRIEF MOMENTS BUT WOULD SHUT THEM AGAIN AND WITH NO VERBAL RESPONSE. THIS EPISODE LASTED ABOUT 20 MINUTES BEFORE PT APPEARED TO START TO CLEAR AND THEN HE WENT TO SLEEP. NEXT WHEN HE WOKE EARLY THIS AM HE WAS FULLY AWAKE AND HAVING CONVERSATIONS AGAIN. REMAINED AT BEDSIDE. VITAL SIGNS STABLE.
[2021-08-19 04:40] LABS: Hemoglobin 14.6 g/dL (13.5-17.5); Mean Corpuscular HGB 31.7 pg (26.0-34.0); Mean Corpuscular HGB Conc 32.4 g/dL (31.5-36.5); Mean Corpuscular Volume 98 fL (80-100); Platelet Count 174 K/mm3 (150-400); RDW Coefficient Variation 14.6 % (11.7-14.2); RDW Standard Deviation 52.2 fL (35.1-46.3); White Blood Cell Count 9.04 K/mm3 (4.00-11.30)
[2021-08-19 05:00] LABS: Bun/Creatinine Ratio 38.3 (12.0-20.0); Creatinine, Blood 1.07 mg/dL (0.60-1.20); Potassium, Blood 4.2 mmol/L (3.5-5.5)
--- NOTE | 2021-08-19 18:29 | NUR ---
SHIFT SUMMARY: NO ACUTE EVENTS. NO EVENTS ON TELEMETRY, AFIB 70-90, WILL DIP DOWN IN TO HIGH 40'S-LOW 50'S WHEN SLEEPING. ALERT, ORIENTED TO SELF, FAMILY. NO TIA/SEIZURE-LIKE EPISODES TODAY. LBM MONOMER RECOVERY OPERATOR; MIRALAX ORDERED. TOLERATING MECH SOFT DIET, REQUIRES FEEDING ASSISTANCE. R ARM VERY WEAK, CAN MOVE HAND AND WRIST BUT NOT THE ARM ITSELF. BP ELEVATED TO 177/113; HYDRALAZINE 10 MG GIVEN, AND BP DECREASED TO 146/87. HAS MULTIPLE BRUISES AND SKIN TEARS. PALMA DRAINING ADEQUATE URINE. PEG AT BEDSIDE MOST OF THE DAY.
--- NOTE | 2021-08-20 04:13 | NUR ---
SHIFT SUMMARY SPOUSE REPORTS MENTATION SLOWLY IMPROVING. RIGHT SIDE WEAKNESS AND BEDREST. AXOX 2-3. PIV REMAINS INTACT. IV ABX INFUSED. TELE MONITOR AFIB 80'S. PALMA PATENT AND DRAINING TO GRAVITY. BP ELEVATED AT SHIFT CHANGE BEFORE HTN PO MEDICATION. SPOUSE STAYED AT BEDSIDE AFTER COMING BACK FOR EVENING. DENIES CHEST PAIN, SOB, AND N/V. CALL LIGHT IN REACH. BED IN LOWEST POSITION. WILL CONTINUE TO MONITOR UNTIL DAY SHIFT NURSE ASSUMES CARE.
[2021-08-20 05:02] LABS: Anion Gap 6 mmol/L (6-16); Blood Urea Nitrogen 37 mg/dL (8-24); Bun/Creatinine Ratio 36.6 (12.0-20.0); CO2, Blood 27 mmol/L (21-32); Calcium, Blood 8.8 mg/dL (8.5-10.1); Chloride, Blood 106 mmol/L (98-108); Creatinine, Blood 1.01 mg/dL (0.60-1.20); Glomerular Filtration Rate 72 (60-); Glucose, Blood 120 mg/dL (70-99); Phosphorus, Blood 2.9 mg/dL (2.5-4.9); Potassium, Blood 3.6 mmol/L (3.5-5.5); Sodium, Blood 139 mmol/L (136-145)
--- NOTE | 2021-08-20 16:52 | NUR ---
SHIFT SUMMARY PATIENT IS ALERT AND ORIENTED 2-3X. PATIENT HAS HAD NO ACUTE EVENTS THIS SHIFT. VITAL SIGNS REVIEWED. PATIENT HAS TAKEN PO MEDICATIONS, ONE AT A TIME WHOLE IN APPLESAUCE WELL THIS SHIFT. PATIENT HAS HAD AT BEDSIDE MOST OF SHIFT ASSISTING WITH CARE. PATIENT HAS DENIED PAIN, NAUSEA, VOMITTING, OR SOB THIS SHIFT. PATIENT HAS RIGHTED DEFICITS. BED IN LOCKED AND LOWEST POSITION. CALL LIGHT IN PLACE. WILL MONITOR UNTIL SHIFT CHANGE.
--- NOTE | 2021-08-21 03:52 | NUR ---
SHIFT SUMMARY NO ACUTE CHANGES OVERNIGHT. PT ADMITTED FOR CVA WITH R SIDE DEFICIT. PT UNABLE TO MOVE R ARM/HAND. PT'S ABLE TO MOVE R LEG BUT APPEARS TO BE WEAK. PT ABLE TO USE L HAND, STAVE BLOCK ROLLER +3. VSS. PULSES ARE STRONG. AOX2-3, HARD TIME EXPRESSING HIS NEED AT TIMES. ABLE TO ANSWERS QUESTIONS. AT BEDSIDE. ABX GIVEN AT MIDNIGHT. IV ON R FOREARM, KVO. VSS. DENIES CHEST PAIN, SOB, TINGLING SENSATION. REPORTS SOME NUMBNESS ON R SIDE ARM/HAND. SCATTERED BRUISING UE AND LE. BLE ELEVATED WITH PILLOW, APPEARS TO HAVE SOME SWELLING, NON PITTING. PALMA INTACT, PATENT WITH YELLOW URINE. URINE OUTPUT HAS BEEN ADEQUATE. CALL LIGHT WITHIN REACH. REPORT WILL BE GIVEN TO ONCOMING NURSE.
--- NOTE | 2021-08-21 16:52 | NUR ---
SHIFT SUMMARY PATIENT IS ALERT AND ORIENTED 2-3. PATIENT HAS NOT HAD ANY ACUTE EVENTS THIS SHIFT. TELE MONITOR DID ALERT THIS RN TO PATIENT GETTING TO 39 HR THIS SHIFT TWICE, PATIENT WAS SLEEPING AND NON SYMPTOMATIC. PATIENTS HAS BEEN AT BEDSIDE AND ASSISTED WITH CARE. PATIENT IS A SUPERVISED FEEDER. BLOOD PRESSURE HAS BEEN BETTER MANAGED THIS SHIFT. VITAL SIGNS REVIEWED. BED IN LOCKED AND LOWERED POSITION. CALL LIGHT IN PLACE. WILL MONITOR UNTIL SHIFT CHANGE.
--- NOTE | 2021-08-22 03:15 | NUR ---
SHIFT SUMMARY NO ACUTE CHANGES OVERNIGHT. PT ON TELE: AFIB, LOWEST HR T/O SHIFT WAS 44, BUT AVERAGING AT 60'S PER JIE (BRIGADIER). VSS PT DENIES CHEST PAIN AND SOB. BEDREST. PALMA -OFF FLOOR, PATENT WITH YELLOW URINE. IV ABX GIVEN AT MIDNIGHT. IV ON R FOREARM AT KVO. AT BEDSIDE ASSISTING W/ CARE. LINEN CHANGED. BED BATH AND PERICARE DONE. AOX2-3. CALL LIGHT WITHIN REACH. WILL CONTINUE TO MONITOR AND WILL PROVIDE REPORT TO ONCOMING NURSE.
[2021-08-22 05:12] LABS: Albumin, Blood 1.8 g/dL (3.4-5.0); Anion Gap 6 mmol/L (6-16); Blood Urea Nitrogen 38 mg/dL (8-24); Bun/Creatinine Ratio 40.9 (12.0-20.0); CO2, Blood 26 mmol/L (21-32); Calcium, Blood 8.8 mg/dL (8.5-10.1); Chloride, Blood 106 mmol/L (98-108); Creatinine, Blood 0.93 mg/dL (0.60-1.20); Glomerular Filtration Rate 80 (60-); Glucose, Blood 122 mg/dL (70-99); Phosphorus, Blood 2.8 mg/dL (2.5-4.9); Potassium, Blood 4.4 mmol/L (3.5-5.5); Sodium, Blood 138 mmol/L (136-145)
--- NOTE | 2021-08-22 08:00 | NUR ---
pt laying in bed eating breakfast with spouces assist, a/ox3, slow to respond, lungs are dim t/o, on r/a resp even and unlabored, no cough noted at this time, hrirr, tele in place running afib in the 70 - 80's, no edema noted, ppp+faint, cap refill <3sec, vs stable, afebrile, iv site is clear and patent, to rfa, infusing ns tko, abd flat soft nontender, voids via patel cath draining roland urine, skin frail, skin tear to rfa, near wrist, moves left side, right side is weak, is on a swallow plan, spouce in room assisting with care, will be transfering to snf today. call light in reach.
[2021-08-22 12:35] LABS: Influenza A, PCR NEGATIVE (NEGATIVE); Influenza B, PCR NEGATIVE (NEGATIVE); Resp Syncytial Virus, PCR NEGATIVE (NEGATIVE); SARS-Cov-2 (COVID-19) PCR, MMC NEGATIVE (NEGATIVE)
[2021-08-22] MEDS ORDERED: ASPI81CH PO (12:52)
[2021-08-22] MEDS ORDERED: ATOR40TA PO (12:53)
[2021-08-22] MEDS ORDERED: MEROPENEM1 G1 IV (12:54)
[2021-08-22] MEDS ORDERED: VISBIOME 112.51 EACH PO (12:55)
[2021-08-22] MEDS ORDERED: MIRALAX17 GM PO (12:55)
--- NOTE | 2021-08-22 16:22 | NUR ---
pt [facility], Dr Cee said to keep patel cath in place because he can't cath himself right now, got him up to a wheelchair via lift, iv removed intact, calling report at this time. has all personal belongings.
== END 2021-08-22 16:10 | DRG 65 ==
LOC: ER 09:45 → ERHOLD 17:03 → MEDS 18:47
PROVIDERS: Internal Medicine; Nurse Practitioner Acute Care; Student in an Organized Health Care Education/Training Program; ADMIT Internal Medicine
DX: I63.81 Other cerebral infarction due to occlusion or stenosis of small artery (principal); S32.028A Other fracture of second lumbar vertebra, initial encounter for closed fracture; T83.518A Infection and inflammatory reaction due to other urinary catheter, initial encounter; S22.051A Stable burst fracture of T5-T6 vertebra, initial encounter for closed fracture; I48.20 Chronic atrial fibrillation, unspecified; I50.32 Chronic diastolic (congestive) heart failure; I13.0 Hypertensive heart and chronic kidney disease with heart failure and stage 1 through stage 4 chronic kidney disease, or unspecified chronic kidney disease; Q60.0 Renal agenesis, unilateral; N39.0 Urinary tract infection, site not specified; G93.49 Other encephalopathy; G81.91 Hemiplegia, unspecified affecting right dominant side; G81.94 Hemiplegia, unspecified affecting left nondominant side; J98.11 Atelectasis; S32.038A Other fracture of third lumbar vertebra, initial encounter for closed fracture; R29.703 NIHSS score 3; Z66 Do not resuscitate; Z20.822 Contact with and (suspected) exposure to COVID-19; S51.011A Laceration without foreign body of right elbow, initial encounter; S51.811A Laceration without foreign body of right forearm, initial encounter; S61.511A Laceration without foreign body of right wrist, initial encounter; R47.81 Slurred speech; I65.22 Occlusion and stenosis of left carotid artery; N40.0 Benign prostatic hyperplasia without lower urinary tract symptoms; S09.90XA Unspecified injury of head, initial encounter; B96.20 Unspecified Escherichia coli [E. coli] as the cause of diseases classified elsewhere; J44.9 Chronic obstructive pulmonary disease, unspecified; R47.1 Dysarthria and anarthria; R29.810 Facial weakness; R91.8 Other nonspecific abnormal finding of lung field; R40.2412 Glasgow coma scale score 13-15, at arrival to emergency department; N31.9 Neuromuscular dysfunction of bladder, unspecified; K74.60 Unspecified cirrhosis of liver; E79.0 Hyperuricemia without signs of inflammatory arthritis and tophaceous disease; N18.30 Chronic kidney disease, stage 3 unspecified; Z87.891 Personal history of nicotine dependence; Z91.14 Patient's other noncompliance with medication regimen; Z86.718 Personal history of other venous thrombosis and embolism; Z90.89 Acquired absence of other organs; Z98.41 Cataract extraction status, right eye; Z98.42 Cataract extraction status, left eye; Z98.890 Other specified postprocedural states; Z79.01 Long term (current) use of anticoagulants; Z79.899 Other long term (current) drug therapy; W06.XXXA Fall from bed, initial encounter; Y84.6 Urinary catheterization as the cause of abnormal reaction of the patient, or of later complication, without mention of misadventure at the time of the procedure
CPT/HCPCS: 0241U; 36415; 51702; 70450; 70496; 70498; 70551; 71250; 72125; 74176; 80048; 80053; 80069; 81001; 83735; 84484; 85025; 85027; 85610; 85730; 86850; 86900; 86901; 87077; 87086; 87186; 92526; 92610; 93005; 93010; 97110; 97162; 97166; 97530; 97535; 99285-25; A9270; C8929; G0480; J0360; J1650; J2185; J3480; J7030; J7040; Q9957; Q9967

== ENCOUNTER → 2021-11-23 | Outpatient (CLI) | payer MEDICARE ==
[~2021-11-23] MED LIST changes: +ATOR40TA PO; +MEROPENEM1 G1 IV; +MIRALAX17 GM PO; +MORPHINE CONCENTRATE; +POTA10T PO; +VISBIOME 112.51 EACH PO
== END | disposition home or self-care (01) ==
LOC: LAB 11:17 → LAB SHORT 11:17
DX: D48.5 Neoplasm of uncertain behavior of skin (principal)
CPT/HCPCS: 88305; 88312